=== PATIENT | male | born 1975 | race Caucasian/White ===

== ENCOUNTER 2022-10-14 12:10 | Emergency (ER) | payer BC, SELFPAY ==
[2022-10-14] VITALS (7 sets, daily range): BP systolic 124–156; BP diastolic 82–101; PULSE 94–119; RESP 16–22; TEMP 37–39.2; O2SAT 95–96; BMI 31.0
--- NOTE | 2022-10-14 12:32 | DI.RAD.S_ITS ---
PROCEDURE: XR CHEST 1V INDICATIONS: suspected sepsis TECHNIQUE: One view of the chest was acquired. COMPARISON: None. FINDINGS: Surgical changes and devices: None. Lungs and pleura: Lungs are clear. No pleural effusions or pneumothorax. Mediastinum: Mediastinal contours appear normal. Heart size is normal. Bones and chest wall: No suspicious bony lesions. Overlying soft tissues appear unremarkable. IMPRESSION: No acute cardiopulmonary pathology. Dictated by: Michael Baez M.D. on 10/14/2022 at 13:36 Approved by: Michael Baez M.D. on 10/14/2022 at 13:38
--- NOTE | 2022-10-14 12:47 | ED.SKABFB ---
HPI - Skin/Abscess/Foreign Bdy General Chief complaint: Skin/Abscess/Foreign Body Stated complaint: wic sent/face looks like cellulitis Time Seen by Provider: 10/14/22 12:39 Source: patient Mode of arrival: Ambulatory Limitations: no limitations History of Present Illness HPI narrative: Patient is a healthy 47-year-old male who presents with rash on the right side of his face for the last 3 days. He thinks maybe it started on the outside of his ear he denies any scratches or injury. No significant pain no vesicles. He is noted to be febrile and tachycardic here in the emergency department. He denies any difficulties swallowing or breathing. He feels like his scalp is on fire. He has significant swelling around his right eye but able to open it. Related Data Previous Rx's Medication Instructions Recorded amoxicillin 875 mg-potassium 1 tab PO BID #20 tabs 10/14/22 clavulanate 125 mg tablet Allergies Allergy/AdvReac Type Severity Reaction Status Date / Time No Known Drug Allergies Allergy Verified 10/14/22 12:32 Review of Systems Review of Systems ROS Unobtainable: All systems reviewed & are unremarkable except as noted in HPI and below Patient History Social History Smoking Status: Never smoker Smoking Status: Never smoker alcohol intake frequency: 0-2 drinks per day Alcohol type: beer Substance Use Type: does not use Exam Initial Vital Signs Initial Vital Signs: Vital Signs Temperature 102.5 F H 10/14/22 12:25 Pulse Rate 119 H 10/14/22 12:25 Respiratory Rate 16 10/14/22 12:25 Blood Pressure 124/95 H 10/14/22 12:25 Pulse Oximetry 96 10/14/22 12:25 Oxygen Delivery Method Room Air 10/14/22 12:25 GENERAL: Alert 47-year-old male HEENT: Head atraumatic,EOMI, pupils reactive, face symmetric, mild cervical lymphadenopathy on right than left CARDIOVASCULAR: Regular rate and rhythm without murmurs, rubs or gallops. RESPIRATORY: Breath sounds equal bilaterally, no wheezes rales or rhonchi. ABDOMEN: Soft, nontender. Normoactive bowel sounds all 4 quadrants. No guarding or rebound. EXTREMITIES: Normal range of motion, no clubbing or edema. Neurovascularly intact NEUROLOGICAL: Alert and oriented x4. SKIN: Significant swelling and erythema rate side of face and your. No vesicles it does come all the way to midline there is 1 small area at the hairline on the left side of the forehead as. No obvious scalp involvement. Course Orders Ordered: Discontinued Medications Sodium Chloride (Normal Saline 0.9%) 1,000 mls @ 1,000 mls/hr IV BOLUS ONE Stop: 10/14/22 13:31 Last Infusion: 10/14/22 13:53 Dose: 0 mls/hr Documented By: Admin: 10/14/22 12:53 Dose: 1,000 mls/hr Documented By: MICHELLE Ampicillin Sodium/Sulbactam (Sodium 3 gm/ Sodium Chloride) 100 mls @ 200 mls/hr IV NOW ONE Stop: 10/14/22 13:37 Last Infusion: 10/14/22 14:34 Dose: 0 mls/hr Documented By: Admin: 10/14/22 13:56 Dose: 200 mls/hr Documented By: ENRIQUETA Ketorolac Tromethamine (Ketorolac 30 Mg/Ml Vial) 15 mg IV NOW ONE Stop: 10/14/22 12:40 Last Admin: 10/14/22 12:53 Dose: 15 mg Documented By: MICHELLE Ondansetron HCl (Ondansetron 4 Mg Odt) 4 mg SL NOW PRN PRN Reason: Nausea And Vomiting Ondansetron HCl (Ondansetron 4 Mg/2 Ml Inj) 4 mg IV NOW PRN PRN Reason: Nausea And Vomiting Vital Signs Vital signs: Vital Signs - 8 hr 10/14/22 12:25 10/14/22 12:55 10/14/22 12:55 Temperature 102.5 F H Pulse Rate 119 H 109 H Respiratory Rate 16 Blood Pressure 124/95 H 156/101 H Pulse Oximetry 96 95 Oxygen Delivery Method Room Air 10/14/22 13:00 10/14/22 13:00 10/14/22 13:30 Temperature Pulse Rate 111 H Respiratory Rate 22 Blood Pressure 150/98 H 140/87 Pulse Oximetry 95 Oxygen Delivery Method 10/14/22 13:30 10/14/22 13:57 10/14/22 14:00 Temperature 99.6 F Pulse Rate 98 H Respiratory Rate 19 Blood Pressure 145/82 H Pulse Oximetry 95 Oxygen Delivery Method Room Air 10/14/22 14:00 10/14/22 14:30 10/14/22 14:30 Temperature 98.6 F Pulse Rate 94 H 95 H Respiratory Rate 20 21 Blood Pressure 149/87 H Pulse Oximetry 95 95 Oxygen Delivery Method MDM - Skin/Abscess/Foreign Bdy Lab Data 10/14/22 12:45 10/14/22 12:45 Labs: Lab Results 10/14/22 10/14/22 10/14/22 Range/Units 12:45 12:45 12:45 WBC 5.8 (4.5-11.0) X10^3/uL RBC 4.71 (4.5-5.9) X10^6/uL Hgb 14.0 (13.5-17.5) g/dL Hct 40.4 L (41-53) % MCV 85.8 (80-100) fL MCH 29.8 (26-34) PG MCHC 34.7 (30-36) % RDW 13.1 (11.6-14.8) % Plt Count 128 L (150-400) X10^3/uL Neut % (Auto) Not Reportable Lymph % (Auto) Not Reportable Shelby % (Auto) Not Reportable Eos % (Auto) Not Reportable Baso % (Auto) Not Reportable Lymph # (Auto) Not Reportable Shelby # (Auto) Not Reportable Baso # (Auto) Not Reportable Total Counted 100 Seg Neutrophils % 79.0 H (38-70) % Band Neutrophils % 1.0 L (3-7) % Lymphocytes % (Manual) 8.0 L (25-45) % Atypical Lymphs % 1.0 H ( - 0) % Monocytes % (Manual) 11.0 (2-11) % Neutrophils # (Manual) 4640 (6838-3807) /uL RBC Morphology Normal morphology PT 15.1 H (10.1-12.7) SECONDS INR 1.3 (0.9-1.3) APTT 30 (26-36) SECONDS Sodium 135 L (137-145) mmol/L Potassium 3.7 (3.4-5.1) mmol/L Chloride 101 (98-107) mmol/L Carbon Dioxide 24 (22-32) mmol/L BUN 14 (9-20) mg/dL Creatinine 0.94 (0.66-1.25) mg/dL Estimated GFR > 60 (>60) mL/min BUN/Creatinine Ratio 14.9 (6-22) Glucose 120 H (70-100) mg/dL Lactate (0.7-2.1) mmol/L Calcium 8.7 (8.4-10.2) mg/dL Total Bilirubin 0.9 (0.2-1.3) mg/dL AST 31 (17-59) IU/L ALT 28 (<50) IU/L Alkaline Phosphatase 55 (38-126) U/L Total Protein 7.5 (6.3-8.2) g/dL Albumin 4.1 (3.5-5.0) g/dL Globulin 3.4 (1.7-4.1) g/dL Albumin/Globulin Ratio 1.2 (1.0-2.8) Lipase 36 (23-300) U/L Procalcitonin 0.41 (<0.5) ng/mL 10/14/22 Range/Units 12:45 WBC (4.5-11.0) X10^3/uL RBC (4.5-5.9) X10^6/uL Hgb (13.5-17.5) g/dL Hct (41-53) % MCV (80-100) fL MCH (26-34) PG MCHC (30-36) % RDW (11.6-14.8) % Plt Count (150-400) X10^3/uL Neut % (Auto) Lymph % (Auto) Shelby % (Auto) Eos % (Auto) Baso % (Auto) Lymph # (Auto) Shelby # (Auto) Baso # (Auto) Total Counted Seg Neutrophils % (38-70) % Band Neutrophils % (3-7) % Lymphocytes % (Manual) (25-45) % Atypical Lymphs % ( - 0) % Monocytes % (Manual) (2-11) % Neutrophils # (Manual) (5959-2942) /uL RBC Morphology PT (10.1-12.7) SECONDS INR (0.9-1.3) APTT (26-36) SECONDS Sodium (137-145) mmol/L Potassium (3.4-5.1) mmol/L Chloride (98-107) mmol/L Carbon Dioxide (22-32) mmol/L BUN (9-20) mg/dL Creatinine (0.66-1.25) mg/dL Estimated GFR (>60) mL/min BUN/Creatinine Ratio (6-22) Glucose (70-100) mg/dL Lactate 1.0 (0.7-2.1) mmol/L Calcium (8.4-10.2) mg/dL Total Bilirubin (0.2-1.3) mg/dL AST (17-59) IU/L ALT (<50) IU/L Alkaline Phosphatase (38-126) U/L Total Protein (6.3-8.2) g/dL Albumin (3.5-5.0) g/dL Globulin (1.7-4.1) g/dL Albumin/Globulin Ratio (1.0-2.8) Lipase (23-300) U/L Procalcitonin (<0.5) ng/mL Imaging Data Chest x-ray: Radiologist's Impression: PROCEDURE:? XR CHEST 1V ? INDICATIONS:? suspected sepsis ? TECHNIQUE:? One view of the chest was acquired.? ? COMPARISON:? None. ? FINDINGS:? ? Surgical changes and devices:? None.? ? Lungs and pleura:? Lungs are clear.? No pleural effusions or pneumothorax.? ? Mediastinum:? Mediastinal contours appear normal.? Heart size is normal.? ? Bones and chest wall:? No suspicious bony lesions.? Overlying soft tissues appear unremarkable.? ? IMPRESSION:? No acute cardiopulmonary pathology. ? ? Dictated by: Michael Baez M.D. on 10/14/2022 at 13:36 ? ? ECG Data Interpretation: Normal sinus rhythm rate 108 MA interval 132 QRS [address] changes no T-wave inversion MDM Narrative Medical decision making narrative: Patient healthy 47-year-old male has erythema fever tachycardia concern for sepsis. He has no airway involvement no neck involvement. Managing secretions fine no concern for Ralph's angina or orbital cellulitis. It seems to have started on the ear and crossed over his face No significant leukocytosis lactic acidosis. Vitals improve with fluids and antibiotics. He is given a dose of Unasyn for the cellulitis. Patient is supposed to be going back home to [place] in about 3 days. We discussed possible hospital admission however he really does not want to stay but he agrees to come back tomorrow for evaluation by me. Discharge Plan Departure Patient Disposition: Home Clinical Impression: Cellulitis of face Instructions: DI for Cellulitis -- Adult Activity Restrictions/Additional Instructions: *You have been diagnosed with facial cellulitis *What to do: This should start getting better for you. Please return to the emergency department tomorrow morning between 7 and 730 where I can see and evaluate you myself. You will likely need to check into the emergency department again ED again for possible more antibiotics *Continue to take medications as directed Augmentin 875 mg twice a day for 10 days--> [facility] *Follow up with your primary care provider in 2-3 days or call [phone] *Return to ER if you should have increasing redness swelling neck swelling difficulty breathing [or] any new, worsening or concerning symptoms Prescriptions: New amoxicillin-pot clavulanate 875-125 mg tablet 1 tab PO BID Qty: 20 0RF Referrals: Miscellaneous,Doctor, [Primary Care Provider] - Stand Alone Forms: Patient Portal/API
[2022-10-14] MEDS: KETOROLAC 30 MG/ML VIAL 15 MG IV (12:53)
[2022-10-14] MEDS: SODIUM CHLORIDE 0.9% 1,000 ML 1000 ML IV (12:53)
[2022-10-14 13:00] LABS: Hematocrit 40.4 % (41-53); Mean Corpuscular HGB Conc 34.7 % (30-36); Mean Corpuscular Hemoglobin 29.8 PG (26-34); Mean Corpuscular Volume 85.8 fL (80-100); Platelet Count 128 X10^3/uL (150-400); Red Blood Cell Count 4.71 X10^6/uL (4.5-5.9); Red Cell Distribution Width 13.1 % (11.6-14.8); White Blood Cell Count 5.8 X10^3/uL (4.5-11.0)
[2022-10-14 13:01] LABS: Add Manual Diff / Slide Review YES
[2022-10-14 13:07] LABS: INR 1.3 (0.9-1.3); Prothrombin Time 15.1 SECONDS (10.1-12.7)
[2022-10-14 13:10] LABS: PTT Partial Thromboplastin Tim 30 SECONDS (26-36)
[2022-10-14 13:15] LABS: Alanine Aminotransferase 28 IU/L (<50); Albumin 4.1 g/dL (3.5-5.0); Albumin Globulin Ratio 1.2 (1.0-2.8); Alkaline Phosphatase 55 U/L (38-126); Aspartate Aminotransferase 31 IU/L (17-59); BUN Creatinine Ratio 14.9 (6-22); Bilirubin Total 0.9 mg/dL (0.2-1.3); Blood Urea Nitrogen 14 mg/dL (9-20); Calcium 8.7 mg/dL (8.4-10.2); Carbon Dioxide 24 mmol/L (22-32); Chloride 101 mmol/L (98-107); Estimated Glomerular Filt Rate > 60 mL/min (>60); Globulin 3.4 g/dL (1.7-4.1); Glucose 120 mg/dL (70-100); HEMOLYSIS < 15 (0-50); Lipase 36 U/L (23-300); Potassium 3.7 mmol/L (3.4-5.1); Sodium 135 mmol/L (137-145); Total Protein 7.5 g/dL (6.3-8.2)
[2022-10-14 13:22] LABS: Neutrophils Absolute Manual 4640 /uL (3000-5900); Total Cells Counted 100
[2022-10-14 13:23] LABS: RBC Morphology Normal Morphology
[2022-10-14 13:33] LABS: Procalcitonin 0.41 ng/mL (<0.5)
[2022-10-14] MEDS: AMPICILLIN/SULBACTAM 3 GM 3 GM in SODIUM CHLORIDE 0.9% 100 ML IV (13:56)
--- NOTE | 2022-10-14 14:58 | PC.NURSE ---
Pt advised to return tomorrow 729 for a recheck of his facial cellulitis.
== END 2022-10-14 15:16 | disposition home or self-care (01) ==
PROVIDERS: Emergency Provider Emergency Medicine
DX: L03.211 Cellulitis of face (principal); R00.0 Tachycardia, unspecified
CPT/HCPCS: 36415; 71045; 80053; 83605; 83690; 84145; 85007; 85025; 85610; 85730; 87040; 93005; 96365; 96375; 99284; J0295; J1885

== ENCOUNTER 2022-10-15 07:25 | Emergency (ER) | payer BC, SELFPAY ==
[2022-10-15 07:35] VITALS: BP 135/76; PULSE 96; RESP 20; TEMP 36.7; O2SAT 97
--- NOTE | 2022-10-15 07:39 | ED.RECABL ---
HPI - Recheck/Abnormal Lab/Rx General Chief Complaint: Recheck/Abnormal Lab/Rx Stated Complaint: here T-1 wanted him to come back Time Seen by Provider: 10/15/22 07:31 Source: patient Mode of arrival: Family Vehicle History of Present Illness HPI narrative: Patient healthy 47-year-old male with facial cellulitis seen by myself yesterday. He is here for re-evaluation. He continues to have erythema he is more swollen today. But he says he was more swollen yesterday morning as well and got little bit better throughout the day. He is afebrile not hypotensive or tachycardic. He had 1 dose of Unasyn yesterday and took a dose of Augmentin last night. Really no significant improvement today. Blood cultures from yesterday are still pending. Related Data Previous Rx's Medication Instructions Recorded amoxicillin 875 mg-potassium 1 tab PO BID #20 tabs 10/14/22 clavulanate 125 mg tablet mupirocin 2 % topical ointment 1 applictn topical BID #15 grams 10/15/22 sulfamethoxazole 800 1 tab PO BID 10 days #20 tabs 10/15/22 mg-trimethoprim 160 mg tablet (Bactrim DS) Allergies Allergy/AdvReac Type Severity Reaction Status Date / Time No Known Drug Allergies Allergy Verified 10/14/22 12:32 Review of Systems Review of Systems ROS Unobtainable: All systems reviewed & are unremarkable except as noted in HPI and below Patient History Social History Smoking Status: Never smoker Smoking Status: Never smoker alcohol intake frequency: 0-2 drinks per day Alcohol type: beer Substance Use Type: does not use Exam Initial Vital Signs Initial Vital Signs: Vital Signs Temperature 98.0 F 10/15/22 07:35 Pulse Rate 96 H 10/15/22 07:35 Respiratory Rate 20 10/15/22 07:35 Blood Pressure 135/76 10/15/22 07:35 Pulse Oximetry 97 10/15/22 07:35 Oxygen Delivery Method Room Air 10/15/22 07:35 GENERAL: Alert 47-year-old male and in no acute distress. HEENT: Head atraumatic,EOMI, pupils reactive, face symmetric, moist mucous membranes CARDIOVASCULAR: Regular rate and rhythm without murmurs, rubs or gallops. RESPIRATORY: Breath sounds equal bilaterally, no wheezes rales or rhonchi. EXTREMITIES: Normal range of motion, no clubbing or edema. Neurovascularly intact NEUROLOGICAL: Alert and oriented x4. SKIN: Significant erythema noted mostly right side of face but definitely now in the left side as well the left forehead which was present yesterday but seems to be a little bit worse today. No obvious drainage fluctuation no vesicles Course Orders Ordered: ED Orders 10/15/22 07:40 BMP [Basic Metabolic Panel] Stat CBC Auto Diff [Complete Blood Count AUTO DIFF] Stat Lactate (Lactic Acid) Stat Procalcitonin Stat Discontinued Medications Ampicillin Sodium/Sulbactam (Sodium 3 gm/ Sodium Chloride) 100 mls @ 200 mls/hr IV NOW ONE Stop: 10/15/22 07:37 Last Infusion: 10/15/22 08:36 Dose: 0 mls/hr Documented By: Admin: 10/15/22 07:53 Dose: 200 mls/hr Documented By: TATUM Vancomycin HCl (Vancomycin) 1,250 mg in 250 mls @ 250 mls/hr IV NOW ONE Stop: 10/15/22 08:37 Last Infusion: 10/15/22 09:39 Dose: 0 mls/hr Documented By: Admin: 10/15/22 08:30 Dose: 250 mls/hr Documented By: TATUM Vital Signs Vital signs: Vital Signs - 8 hr 10/15/22 07:35 10/15/22 08:11 10/15/22 08:30 Temperature 98.0 F Pulse Rate 96 H 80 79 Respiratory Rate 20 Blood Pressure 135/76 Pulse Oximetry 97 94 95 Oxygen Delivery Method Room Air 10/15/22 08:34 10/15/22 08:34 10/15/22 09:00 Temperature Pulse Rate 80 73 Respiratory Rate 20 Blood Pressure 123/77 Pulse Oximetry 94 95 Oxygen Delivery Method Room Air 10/15/22 09:55 10/15/22 09:56 Temperature Pulse Rate 75 Respiratory Rate 16 Blood Pressure 129/83 Pulse Oximetry 99 Oxygen Delivery Method Room Air Room Air MDM - Recheck/Abnormal Lab/Rx Lab Data 10/15/22 07:40 10/15/22 07:40 Labs: Lab Results 10/15/22 10/15/22 10/15/22 Range/Units 07:40 07:40 07:40 WBC 4.5 (4.5-11.0) X10^3/uL RBC 4.74 (4.5-5.9) X10^6/uL Hgb 14.1 (13.5-17.5) g/dL Hct 40.8 L (41-53) % MCV 86.1 (80-100) fL MCH 29.6 (26-34) PG MCHC 34.4 (30-36) % RDW 12.9 (11.6-14.8) % Plt Count 125 L (150-400) X10^3/uL Neut % (Auto) 64.6 (50-75) % Lymph % (Auto) 13.1 L (25-40) % Potter % (Auto) 19.8 H (3-14) % Eos % (Auto) 2.1 (2-4) % Baso % (Auto) 0.4 (0-2) % Neut # (Auto) 2900 (2244-4958) /uL Lymph # (Auto) 600 L (3569-3379) /uL Potter # (Auto) 900 (0-900) /uL Eos # (Auto) 100 (0-450) /uL Baso # (Auto) 0 (0-100) /uL Sodium 141 (137-145) mmol/L Potassium 3.5 (3.4-5.1) mmol/L Chloride 106 (98-107) mmol/L Carbon Dioxide 29 (22-32) mmol/L BUN 15 (9-20) mg/dL Creatinine 0.84 (0.66-1.25) mg/dL Estimated GFR > 60 (>60) mL/min BUN/Creatinine Ratio 17.9 (6-22) Glucose 137 H (70-100) mg/dL Lactate 0.8 (0.7-2.1) mmol/L Calcium 8.9 (8.4-10.2) mg/dL Procalcitonin 0.38 (<0.5) ng/mL [facility] Narrative Medical decision making narrative: Patient healthy 47-year-old male presents with re-evaluation for facial cellulitis. Concern for erysipelas, strep versus MRSA. Today blood work is again reassuring vitals are stable. Procalcitonin is actually even decreasing along with WBC. No evidence of sepsis. Blood cultures from yesterday are still pending. Given 2nd dose of IV Unasyn and 1st dose of vancomycin. He overall looks well it actually does not look significantly worse or improved from yesterday. He would still like to make his airplane flight. Strongly encouraged him to be evaluated once he gets to [place]. Will start him on Bactrim and mupirocin along with Unasyn. Discharge Plan Departure Patient Disposition: Home Clinical Impression: Cellulitis of face Instructions: Cellulitis, DI for Erysipelas Activity Restrictions/Additional Instructions: *You have been diagnosed with cellulitis of face erysipelas *What to do: At this time please monitor very closely. If you are having any worsening of redness please return to the nearest emergency department. Hopefully this starts improving by tomorrow. Expect to have more swelling in the morning. May try cool compresses *Continue to take medications as directed Continue Augmentin as prescribed Bactrim 1 tablet twice a day for 10 days Motrin and Tylenol if needed for pain or fever *Follow up with your primary care provider in 2-3 days or call [phone] *Return to ER if you should have increasing redness difficulty breathing fevers difficulty swallowing or any new, worsening or concerning symptoms Prescriptions: New sulfamethoxazole-trimethoprim [Bactrim DS] 800-160 mg tablet 1 tab PO BID 10 Days Qty: 20 0RF mupirocin 2 % ointment 1 applictn TOP BID Qty: 15 0RF No Action amoxicillin-pot clavulanate 875-125 mg tablet 1 tab PO BID Qty: 20 0RF Referrals: Miscellaneous,Doctor, [Primary Care Provider] - Stand Alone Forms: Patient Portal/API
[2022-10-15 07:52] LABS: Add Manual Diff / Slide Review NO; Basophils Absolute Auto 0 /uL (0-100); Basophils Percent Auto 0.4 % (0-2); Eosinophils Absolute Auto 100 /uL (0-450); Eosinophils Percent Auto 2.1 % (2-4); Hematocrit 40.8 % (41-53); Hemoglobin 14.1 g/dL (13.5-17.5); Lymphocytes Absolute Auto 600 /uL (1100-4500); Lymphocytes Percent Auto 13.1 % (25-40); Mean Corpuscular HGB Conc 34.4 % (30-36); Mean Corpuscular Hemoglobin 29.6 PG (26-34); Mean Corpuscular Volume 86.1 fL (80-100); Monocytes Absolute Auto 900 /uL (0-900); Monocytes Percent Auto 19.8 % (3-14); Neutrophils Absolute Auto 2900 /uL (1500-7000); Neutrophils Percent Auto 64.6 % (50-75); Platelet Count 125 X10^3/uL (150-400); Red Blood Cell Count 4.74 X10^6/uL (4.5-5.9); Red Cell Distribution Width 12.9 % (11.6-14.8); White Blood Cell Count 4.5 X10^3/uL (4.5-11.0)
[2022-10-15] MEDS: AMPICILLIN/SULBACTAM 3 GM 3 GM in SODIUM CHLORIDE 0.9% 100 ML IV (07:53)
[2022-10-15 08:02] LABS: BUN Creatinine Ratio 17.9 (6-22); Blood Urea Nitrogen 15 mg/dL (9-20); Calcium 8.9 mg/dL (8.4-10.2); Carbon Dioxide 29 mmol/L (22-32); Chloride 106 mmol/L (98-107); Estimated Glomerular Filt Rate > 60 mL/min (>60); Glucose 137 mg/dL (70-100); HEMOLYSIS < 15 (0-50); Potassium 3.5 mmol/L (3.4-5.1); Sodium 141 mmol/L (137-145)
[2022-10-15 08:03] LABS: Lactate (Lactic Acid) 0.8 mmol/L (0.7-2.1)
[2022-10-15 08:11] VITALS: PULSE 80; O2SAT 94
[2022-10-15 08:19] LABS: Procalcitonin 0.38 ng/mL (<0.5)
[2022-10-15 08:30] VITALS: PULSE 79; O2SAT 95
[2022-10-15] MEDS: VANCOMYCIN 1,250 MG/250 ML PIGGYBACK 250 MG IV (08:30)
[2022-10-15 08:34] VITALS: BP 123/77; PULSE 80; O2SAT 94
[2022-10-15 09:00] VITALS: PULSE 73; RESP 20; O2SAT 95
[2022-10-15 09:55] VITALS: BP 129/83; PULSE 75; RESP 16; O2SAT 99
== END 2022-10-15 09:57 | disposition home or self-care (01) ==
PROVIDERS: Emergency Provider Emergency Medicine
DX: L03.211 Cellulitis of face (principal)
CPT/HCPCS: 36415; 80048; 83605; 84145; 85025; 96365; 96367; 99284; J0295